=== PATIENT | male | born 1965 | race Two or more races ===

== ENCOUNTER 2017-12-02 12:47 | Outpatient (CLI) | payer OTHER | END 2017-12-02 12:49 | disposition home or self-care (01) | LOC: RAD 501 12:47 | DX: J44.1 Chronic obstructive pulmonary disease with (acute) exacerbation (principal) ==

== ENCOUNTER 2020-10-21 14:26 | Emergency (ER) | payer OTHER ==
[~2020-10-21] VITALS: Ht 152.4 cm; Wt 88.5 kg
== END 2020-10-21 20:10 | disposition home or self-care (01) ==
LOC: ER 14:26
DX: S13.4XXA Sprain of ligaments of cervical spine, initial encounter (principal); G89.11 Acute pain due to trauma; R51.9 Headache, unspecified; M54.2 Cervicalgia; V49.88XA Car occupant (driver) (passenger) injured in other specified transport accidents, initial encounter; Y93.89 Activity, other specified; Y92.488 Other paved roadways as the place of occurrence of the external cause; Y99.8 Other external cause status

== ENCOUNTER → 2020-12-04 | Emergency (ER) | payer OTHER ==
[~2020-12-04] VITALS: Ht 167.6 cm; Wt 86.2 kg
[~2020-12-04] MED LIST: ATORVASTATIN CA10 MG; COZAAR100 MG; MUPIROCIN1 G1 TOP; NORVASC2.5 M1
== END | disposition home or self-care (01) ==
LOC: ER 09:03
DX: S60.372A Other superficial bite of left thumb, initial encounter (principal); W54.0XXA Bitten by dog, initial encounter; Y93.89 Activity, other specified; Y92.89 Other specified places as the place of occurrence of the external cause; Y99.8 Other external cause status

== ENCOUNTER 2022-10-11 12:16 | Emergency (ER) | payer OTHER ==
[~2022-10-11] VITALS: Ht 167.6 cm; Wt 87.1 kg
[2022-10-11] MEDS ORDERED: CLONAZEPAM1 MG PO (12:31)
[2022-10-11] MEDS ORDERED: BUPROPION HCL150 M1 PO (12:31)
[2022-10-11] MEDS ORDERED: SYNTHROID137 MCG PO (12:32)
[2022-10-11] MEDS ORDERED: TAMSULOSIN HCL0.4 MG PO (12:32)
[2022-10-11] MEDS ORDERED: PEPCID AC20 MG PO (17:16)
== END 2022-10-11 17:21 | disposition home or self-care (01) ==
LOC: ER 12:16
DX: K52.89 Other specified noninfective gastroenteritis and colitis (principal)

== ENCOUNTER 2023-04-20 14:36 | Emergency (ER) | payer OTHER ==
[~2023-04-20] VITALS: Ht 167.6 cm; Wt 85.3 kg
[~2023-04-20 14:36] MED LIST changes: +BUPROPION HCL150 M1 PO; +CLONAZEPAM1 MG PO; +PEPCID AC20 MG PO; +SYNTHROID137 MCG PO; +TAMSULOSIN HCL0.4 MG PO
[2023-04-20] MEDS ORDERED: PAXLOVID 300-11 EACH PO (18:43)
== END 2023-04-20 18:45 | disposition home or self-care (01) ==
LOC: ER 14:36
DX: U07.1 COVID-19 (principal); B34.9 Viral infection, unspecified; R53.81 Other malaise; I10 Essential (primary) hypertension

== ENCOUNTER 2023-04-29 07:55 | Emergency (ER) | payer OTHER ==
[~2023-04-29] VITALS: Ht 167.6 cm; Wt 86.2 kg
[~2023-04-29 07:55] MED LIST changes: +PAXLOVID 300-11 EACH PO
== END 2023-04-29 09:52 | disposition home or self-care (01) ==
LOC: ER 07:55
DX: U07.1 COVID-19 (principal); R53.81 Other malaise; I10 Essential (primary) hypertension; E03.8 Other specified hypothyroidism

== ENCOUNTER 2023-05-27 05:56 | Day surgery (SDC) | payer OTHER ==
[~2023-05-27] VITALS: Ht 167.6 cm; Wt 86.2 kg
[~2023-05-27 05:56] MED LIST changes: +ALLEGRA ALLERG180 MG PO; +ATORVASTATIN CA10 MG PO; +FLONASE16 GM; +WELLBUTRIN SR150 MG PO; +[UNRECOGNIZED DRUG - OTHER] PO
== END 2023-05-27 15:05 | disposition home or self-care (01) ==
LOC: CIR.AMB 05:56
PROVIDERS: ATTEND Orthopaedic Surgery Hand Surgery
DX: S52.532A Colles' fracture of left radius, initial encounter for closed fracture (principal); T84.89XA Other specified complication of internal orthopedic prosthetic devices, implants and grafts, initial encounter; Z20.822 Contact with and (suspected) exposure to COVID-19; I10 Essential (primary) hypertension

== ENCOUNTER 2023-09-15 11:57 | Outpatient (CLI) | payer OTHER | END 2023-09-15 12:05 | disposition home or self-care (01) | LOC: RAD 11:57 | PROVIDERS: ATTEND Orthopaedic Surgery Sports Medicine | DX: M25.512 Pain in left shoulder (principal) ==

== ENCOUNTER 2024-11-23 20:15 | Emergency (ER) | payer OTHER ==
[~2024-11-23] VITALS: Ht 180.3 cm; Wt 81.6 kg
[2024-11-24] MEDS ORDERED: GUAIFENESIN 200 MG/10 ML BLIST.PACK PO STA (01:48)
[2024-11-24] MEDS ORDERED: ACETAMINOPHEN 500 MG GEL..CAP PO STA (01:48)
[2024-11-24] MEDS ORDERED: GUAIFENESIN 200 MG/10 ML BLIST.PACK PO ONE (01:53)
[2024-11-24] MEDS ORDERED: ACETAMINOPHEN 500 MG GEL..CAP PO ONE (01:53)
[2024-11-24] MEDS ORDERED: ORASEP SPRAY30 ML MM (04:23)
[2024-11-24] MEDS ORDERED: ZYNCOF 20-400120 ML PO (04:23)
== END 2024-11-24 04:36 ==
LOC: ER 20:18
DX: J10.1 Influenza due to other identified influenza virus with other respiratory manifestations (principal); I10 Essential (primary) hypertension